=== PATIENT | female | born 1965 | race African-American/Black ===

== ENCOUNTER 2020-12-22 13:54 | Emergency (ER) | payer SELFPAY ==
[2020-12-23 00:27] LABS: SARS-CoV-2 PCR by NAA Not Detected (NotDetected)
== END 2020-12-22 15:28 | disposition home or self-care (01) ==
LOC: ERS 13:54
DX: R05 Cough (principal); Z20.822 Contact with and (suspected) exposure to COVID-19; E11.9 Type 2 diabetes mellitus without complications; I10 Essential (primary) hypertension
CPT/HCPCS: 99283; U0003; U0005

== ENCOUNTER 2021-04-08 20:05 | Emergency (ER) | payer SELFPAY ==
[2021-04-08 20:37] LABS: Bilirubin Negative (Negative); Blood, Urine Negative (Negative); Clarity Clear (Clear); Glucose, Urine (Dipstick) Greater than 1000 mg/dL (Negative); Ketone, Urine Negative (Negative); Leukocyte Negative Leu/uL (Negative); Nitrite Negative (Negative); Protein, Urine (Dipstick) Negative (Neg-Trace); Specific Gravity, Urine 1.036 (1.002-1.036); Urobilinogen Normal mg/dL (Less than 2); pH, Urine 5.5 (5.0-9.0)
[2021-04-08 20:57] LABS: Hemoglobin 14.3 g/dL (12.0-16.0); Mean Corpuscular HGB CONC 33.4 g/dL (32.0-36.0); Mean Corpuscular Hemoglobin 29.2 pg (27.0-31.0); Mean Corpuscular Volume 87.5 fL (78.0-98.0); Mean Platelet Volume 7.7 fL (7.4-10.4); Platelet Count 186 thou/uL (130-400); White Blood Cell (WBC) Count 5.3 thou/uL (4.8-10.8)
[2021-04-08 20:58] LABS: #Lymphocytes 1.9 thou/uL (1.20-3.40); #Monocytes 0.6 thou/uL (0.11-0.59); #Neutrophils 2.8 thou/uL (1.40-6.50); %Basophils 0.5 % (0.0-1.0); %Eosinophils 0.3 % (0.0-10.0); %Lymphocytes 36.1 % (21.0-51.0); %Monocytes 10.4 % (0.0-10.0); %Neutrophils 52.6 % (42.0-75.0)
[2021-04-08 21:09] LABS: ALT (SGPT) 42 U/L (8-55); AST (SGOT) 35 U/L (5-34); Albumin 3.5 g/dL (3.5-5.0); Alkaline Phosphatase 318 U/L (40-110); Anion Gap 14 mmol/L (10-20); BUN (Urea Nitrogen) 14 mg/dL (9.8-20.1); Bilirubin, Total 0.3 mg/dL (0.2-1.2); Calc. Creatinine Clearance 0 mL/min (70-130); Calcium 8.8 mg/dL (7.8-10.44); Carbon Dioxide 26 mmol/L (22-29); Chloride 93 mmol/L (98-107); Globulin 3.2 g/dL (2.4-3.5); Potassium 3.6 mmol/L (3.5-5.1); Protein, Total 6.7 g/dL (6.0-8.3); Sodium 129 mmol/L (136-145)
[2021-04-08 21:17] LABS: Glucose 603 mg/dL (70-105)
[2021-04-08] MEDS ORDERED: Acetaminophen 500 MG TAB ONE (22:47)
[2021-04-08] MEDS ORDERED: Insulin Regular 300 UNITS/3 ML VIAL ONE (22:47)
[2021-04-08] MEDS ORDERED: Azithromycin 250 MG TAB ONE ×2 (23:40)
[2021-04-09 00:08] LABS: SARS-CoV-2 NAA Rapid Test DETECTED (NotDetected)
== END 2021-04-08 23:55 | disposition home or self-care (01) ==
LOC: ERS 20:05
DX: U07.1 COVID-19 (principal); J12.82 Pneumonia due to coronavirus disease 2019; E11.65 Type 2 diabetes mellitus with hyperglycemia; I10 Essential (primary) hypertension; F17.210 Nicotine dependence, cigarettes, uncomplicated; Z79.84 Long term (current) use of oral hypoglycemic drugs; Z79.899 Other long term (current) drug therapy; Z79.82 Long term (current) use of aspirin; Z79.4 Long term (current) use of insulin
CPT/HCPCS: 36415; 36416; 71045; 74177; 80053; 81003; 83605; 83690; 85025; 96365; J1815; U0002

== ENCOUNTER 2021-04-09 12:13 | Emergency (ER) | payer MEDICARE, SELFPAY ==
[2021-04-09 13:29] LABS: Mean Corpuscular HGB CONC 32.9 g/dL (32.0-36.0); Mean Corpuscular Hemoglobin 28.8 pg (27.0-31.0); Mean Corpuscular Volume 87.5 fL (78.0-98.0); Mean Platelet Volume 7.3 fL (7.4-10.4); Platelet Count 177 thou/uL (130-400); RBC Distribution Width 14.2 % (11.5-14.5); Red Blood Cell (RBC) Count 4.86 mill/uL (4.20-5.40); White Blood Cell (WBC) Count 5.1 thou/uL (4.8-10.8)
[2021-04-09 13:55] LABS: Band 2 % (5-11); Lymphocytes 44 % (21-51); MDiff Complete? YES; Monocytes 10 % (0-10); Neutrophil 39 % (42-75); Platelet Morphology Comment Appears Adequate; RBC Morphology Normal; Reactive Lymphocytes 3 % (0-10)
== END 2021-04-09 13:59 | disposition home or self-care (01) ==
LOC: ERS 12:13
DX: U07.1 COVID-19 (principal); J12.82 Pneumonia due to coronavirus disease 2019; R10.9 Unspecified abdominal pain; I10 Essential (primary) hypertension; E11.9 Type 2 diabetes mellitus without complications; F17.210 Nicotine dependence, cigarettes, uncomplicated; Z79.82 Long term (current) use of aspirin; Z79.84 Long term (current) use of oral hypoglycemic drugs; Z79.899 Other long term (current) drug therapy
CPT/HCPCS: 36415; 85025; 99283

== ENCOUNTER 2021-04-20 12:48 | Emergency (ER) | payer MEDICARE, SELFPAY ==
[2021-04-21 00:06] LABS: SARS-CoV-2 PCR by NAA Indeterminate (NotDetected)
== END 2021-04-20 13:16 | disposition home or self-care (01) ==
LOC: ERS 12:48
DX: U07.1 COVID-19 (principal); E11.9 Type 2 diabetes mellitus without complications; I10 Essential (primary) hypertension; F17.210 Nicotine dependence, cigarettes, uncomplicated; Z79.82 Long term (current) use of aspirin; Z79.84 Long term (current) use of oral hypoglycemic drugs; Z79.4 Long term (current) use of insulin; Z79.899 Other long term (current) drug therapy
CPT/HCPCS: 99284; U0003; U0005

== ENCOUNTER 2021-05-08 12:01 | Emergency (ER) | payer MEDICARE ==
[2021-05-08] MEDS ORDERED: Ibuprofen 800 MG TAB ONE (14:16)
== END 2021-05-08 15:45 | disposition home or self-care (01) ==
LOC: ERS 12:01
DX: S80.12XA Contusion of left lower leg, initial encounter (principal); I10 Essential (primary) hypertension; E11.9 Type 2 diabetes mellitus without complications; E78.00 Pure hypercholesterolemia, unspecified; I25.2 Old myocardial infarction; F17.210 Nicotine dependence, cigarettes, uncomplicated; X58.XXXA Exposure to other specified factors, initial encounter; Z95.1 Presence of aortocoronary bypass graft

== ENCOUNTER 2021-05-23 16:39 | Emergency (ER) | payer MEDICARE | END 2021-05-23 17:50 | disposition home or self-care (01) | LOC: ERS 16:39 | DX: M79.672 Pain in left foot (principal); I10 Essential (primary) hypertension; E11.40 Type 2 diabetes mellitus with diabetic neuropathy, unspecified; F17.210 Nicotine dependence, cigarettes, uncomplicated ==

== ENCOUNTER 2021-10-23 13:27 | Inpatient (IN) | payer MEDICARE ==
[2021-10-23 14:21] LABS: #Basophils 0.1 thou/uL (0.0-0.2); #Eosinphils 0.3 thou/uL (0.0-0.7); #Lymphocytes 4.3 thou/uL (1.20-3.40); #Monocytes 0.7 thou/uL (0.11-0.59); #Neutrophils 3.8 thou/uL (1.40-6.50); %Basophils 1.1 % (0.0-1.0); %Eosinophils 3.2 % (0.0-10.0); %Lymphocytes 46.8 % (21.0-51.0); %Monocytes 7.1 % (0.0-10.0); %Neutrophils 41.8 % (42.0-75.0); Hemoglobin 12.2 g/dL (12.0-16.0); Mean Corpuscular HGB CONC 31.6 g/dL (32.0-36.0); Mean Platelet Volume 7.7 fL (7.4-10.4); Platelet Count 290 thou/uL (130-400); RBC Distribution Width 13.9 % (11.5-14.5); Red Blood Cell (RBC) Count 4.18 mill/uL (4.20-5.40); White Blood Cell (WBC) Count 9.2 thou/uL (4.8-10.8)
[2021-10-23 14:31] LABS: ALT (SGPT) 36 U/L (8-55); AST (SGOT) 29 U/L (5-34); Albumin 3.4 g/dL (3.5-5.0); Alkaline Phosphatase 225 U/L (40-110); Anion Gap 14 mmol/L (10-20); BUN (Urea Nitrogen) 8 mg/dL (9.8-20.1); Bilirubin, Total 0.5 mg/dL (0.2-1.2); Calc. Creatinine Clearance 0 mL/min (70-130); Calcium 9.1 mg/dL (7.8-10.44); Carbon Dioxide 26 mmol/L (22-29); Chloride 103 mmol/L (98-107); Estimated GFR 86; Glucose 224 mg/dL (70-105); Protein, Total 6.4 g/dL (6.0-8.3); Sodium 139 mmol/L (136-145)
[2021-10-23] MEDS ORDERED: Furosemide 40 MG/4 ML VIAL ONE (15:17)
[2021-10-23] MEDS ORDERED: Nitroglycerin 2% Ointment 1 INCH/1 GM Packet ONE (15:17)
[2021-10-23] MEDS ORDERED: Nitroglycerin 0.4 MG TAB 1 EACH ONE (15:17)
[2021-10-23] MEDS ORDERED: Aspirin Chewable 81 MG TAB ONE (15:29)
[2021-10-23] MEDS ORDERED: Magnesium 2 GM/50 ML BAG (IN WATER) ONE (15:39)
[2021-10-23] MEDS ORDERED: Azithromycin 250 MG TAB ONE (15:39)
[2021-10-23] MEDS ORDERED: predniSONE 20 MG TAB ONE (15:39)
[2021-10-23] MEDS ORDERED: cefTRIAXone\\ROCEPHIN 1 GM VIAL ONE (15:56)
[2021-10-23] MEDS ORDERED: Enoxaparin Sodium 40 MG/0.4 ML SYRINGE SC SCH (16:30)
[2021-10-23] MEDS ORDERED: Dextrose 50% Abboject 50 ML SYRINGE SLOW IVP PRN (16:31)
[2021-10-23] MEDS ORDERED: Dextrose 5% in Water 1,000 ML IV PRN (16:31)
[2021-10-23 17:07] LABS: Actual Bicarbonate (HCO3v) 27 mEq/L (22-28); Analyzer IN Cardio ER; Base Excess 1.4 mEq/L (-2.0 to +3.0); Calcium, Ionized (venous) 1.11 mmol/L (1.16-1.32); Chloride (VBG) 100 mmol/L (98-106); Hemoglobin (Hb) 13.4 g/dL (11.7-16.0); Potassium (VBG) 3.66 mmol/L (3.70-5.30); Sodium 134.8 mmol/L (133-146)
[2021-10-23 17:26] LABS: Troponin I 0.017 ng/mL (< 0.028)
[2021-10-23] MEDS: Nicotine 14 MG PATCH TD SCH (18:36)
[2021-10-23 18:37] VITALS: BMI 27.1
[2021-10-23] MEDS ORDERED: Furosemide 40 MG/4 ML VIAL SLOW IVP SCH (20:15)
[2021-10-23] MEDS: metFORMIN 500 MG TAB PO SCH (21:24)
[2021-10-23] MEDS: Carvedilol 25 MG TAB PO SCH (21:24)
[2021-10-23] MEDS: busPIRone HCl 10 MG TAB PO SCH (21:25)
[2021-10-23] MEDS: Gabapentin 400 MG CAP PO SCH (21:25)
[2021-10-24] MEDS ORDERED: hydrALAZINE 20 MG/ML VIAL SLOW IVP SCH (04:45)
[2021-10-24 04:54] LABS: #Lymphocytes 2.3 thou/uL (1.20-3.40); #Monocytes 0.3 thou/uL (0.11-0.59); #Neutrophils 6.1 thou/uL (1.40-6.50); %Basophils 0.3 % (0.0-1.0); %Eosinophils 0.3 % (0.0-10.0); %Lymphocytes 25.9 % (21.0-51.0); %Monocytes 3.8 % (0.0-10.0); %Neutrophils 69.7 % (42.0-75.0); Hemoglobin 12.9 g/dL (12.0-16.0); Mean Corpuscular Hemoglobin 28.4 pg (27.0-31.0); Mean Corpuscular Volume 91.3 fL (78.0-98.0); Mean Platelet Volume 8.2 fL (7.4-10.4); Platelet Count 299 thou/uL (130-400); RBC Distribution Width 14.1 % (11.5-14.5); Red Blood Cell (RBC) Count 4.56 mill/uL (4.20-5.40); White Blood Cell (WBC) Count 8.7 thou/uL (4.8-10.8)
[2021-10-24 05:07] LABS: Anion Gap 18 mmol/L (10-20); BUN (Urea Nitrogen) 14 mg/dL (9.8-20.1); Calc. Creatinine Clearance 72 mL/min (70-130); Calcium 9.1 mg/dL (7.8-10.44); Carbon Dioxide 26 mmol/L (22-29); Chloride 98 mmol/L (98-107); Estimated GFR 61; Glucose 363 mg/dL (70-105); Potassium 4.1 mmol/L (3.5-5.1); Sodium 138 mmol/L (136-145)
[2021-10-24] MEDS: HumaLOG 300 UNITS/3 ML VIAL SC PRN ×4 (05:32→22:31)
[2021-10-24] MEDS ORDERED: Furosemide 40 MG/4 ML VIAL SLOW IVP SCH ×3 (08:00→18:00)
[2021-10-24] MEDS ORDERED: POTASSIUM CHLORIDE 40 MEQ/15 ML PO SCH (09:00)
[2021-10-24] MEDS ORDERED: Furosemide 40 MG TAB PO SCH (09:00)
[2021-10-24] MEDS ORDERED: Insulin Glargine 30 UNITS/0.3 ML VIAL SC SCH ×3 (09:00→10:00)
[2021-10-24] MEDS ORDERED: Lantus 1000 UNITS/10 ML VIAL SC SCH (09:45)
[2021-10-24 10:03] LABS: Hemoglobin A1c Greater than 14.0 % (4.0-6.0)
[2021-10-24] MEDS: metFORMIN 500 MG TAB PO SCH ×2 (10:28→20:00)
[2021-10-24] MEDS: Amitriptyline HCl 25 MG TAB PO SCH (10:28)
[2021-10-24] MEDS: Carvedilol 25 MG TAB PO SCH ×2 (10:29→19:59)
[2021-10-24] MEDS: Spironolactone 25 MG TAB PO SCH (10:29)
[2021-10-24] MEDS: Aspirin 81 mg Enteric Coated Tablet PO SCH (10:30)
[2021-10-24] MEDS: Gabapentin 400 MG CAP PO SCH ×3 (10:36→19:59)
[2021-10-24] MEDS: busPIRone HCl 10 MG TAB PO SCH ×3 (10:36→20:00)
[2021-10-24] MEDS: Nicotine 14 MG PATCH TD SCH (18:01)
[2021-10-25] MEDS: HumaLOG 300 UNITS/3 ML VIAL SC PRN ×3 (00:58→13:02)
[2021-10-25 08:39] LABS: Anion Gap 14 mmol/L (10-20); BUN (Urea Nitrogen) 14 mg/dL (9.8-20.1); Calc. Creatinine Clearance 75 mL/min (70-130); Calcium 8.6 mg/dL (7.8-10.44); Carbon Dioxide 30 mmol/L (22-29); Chloride 98 mmol/L (98-107); Estimated GFR 68; Glucose 393 mg/dL (70-105); Potassium 3.3 mmol/L (3.5-5.1); Sodium 139 mmol/L (136-145)
[2021-10-25] MEDS ORDERED: Insulin Glargine 30 UNITS/0.3 ML VIAL SC SCH ×4 (09:00→09:08)
[2021-10-25] MEDS: metFORMIN 500 MG TAB PO SCH ×3 (09:08→20:22)
[2021-10-25] MEDS: Amitriptyline HCl 25 MG TAB PO SCH (09:09)
[2021-10-25] MEDS: busPIRone HCl 10 MG TAB PO SCH ×3 (09:09→20:13)
[2021-10-25] MEDS: Gabapentin 400 MG CAP PO SCH ×3 (09:09→20:13)
[2021-10-25] MEDS: Spironolactone 25 MG TAB PO SCH (09:10)
[2021-10-25] MEDS: Aspirin 81 mg Enteric Coated Tablet PO SCH (09:10)
[2021-10-25] MEDS ORDERED: Furosemide 40 MG/4 ML VIAL SLOW IVP SCH (09:15)
[2021-10-25] MEDS ORDERED: Potassium Chloride 20 MEQ TAB PO SCH ×2 (09:15→13:15)
[2021-10-25] MEDS: Carvedilol 25 MG TAB PO SCH ×2 (09:20→20:12)
[2021-10-25] MEDS: HumaLOG 300 UNITS/3 ML VIAL SC SCH ×2 (13:01→17:17)
[2021-10-25] MEDS: Furosemide 40 MG/4 ML VIAL SLOW IVP SCH ×2 (14:50→20:15)
[2021-10-25] MEDS: Nicotine 14 MG PATCH TD SCH (17:35)
[2021-10-26] MEDS: HumaLOG 300 UNITS/3 ML VIAL SC PRN ×2 (00:10→11:59)
[2021-10-26 04:32] LABS: Anion Gap 15 mmol/L (10-20); BUN (Urea Nitrogen) 16 mg/dL (9.8-20.1); Calc. Creatinine Clearance 82 mL/min (70-130); Calcium 9.1 mg/dL (7.8-10.44); Carbon Dioxide 29 mmol/L (22-29); Chloride 99 mmol/L (98-107); Estimated GFR 77; Glucose 161 mg/dL (70-105); Potassium 3.5 mmol/L (3.5-5.1); Sodium 139 mmol/L (136-145)
[2021-10-26] MEDS ORDERED: Losartan 25 MG TAB PO SCH (09:00)
[2021-10-26] MEDS ORDERED: Insulin Glargine 30 UNITS/0.3 ML VIAL SC SCH (09:00)
[2021-10-26] MEDS ORDERED: Potassium Chloride 20 MEQ TAB PO SCH (09:00)
[2021-10-26] MEDS ORDERED: Lantus 1000 UNITS/10 ML VIAL SC SCH (09:00)
[2021-10-26] MEDS: busPIRone HCl 10 MG TAB PO SCH ×2 (09:13→16:31)
[2021-10-26] MEDS: Amitriptyline HCl 25 MG TAB PO SCH (09:13)
[2021-10-26] MEDS: metFORMIN 500 MG TAB PO SCH (09:13)
[2021-10-26] MEDS: Aspirin 81 mg Enteric Coated Tablet PO SCH (09:14)
[2021-10-26] MEDS: Gabapentin 400 MG CAP PO SCH ×2 (09:14→16:31)
[2021-10-26] MEDS: Carvedilol 25 MG TAB PO SCH (09:16)
[2021-10-26] MEDS: Spironolactone 25 MG TAB PO SCH (09:17)
[2021-10-26] MEDS ORDERED: Torsemide 20 MG TAB PO SCH (11:00)
[2021-10-26 17:24] VITALS: BP 143/83; TEMP 98
[2021-10-27] MEDS ORDERED: Potassium Chloride 20 MEQ TAB PO SCH (08:00)
[2021-10-27] MEDS ORDERED: Torsemide 20 MG TAB PO SCH ×2 (09:00)
== END 2021-10-26 17:28 | disposition home or self-care (01) | DRG 291 ==
LOC: ERS 13:27 → 2NO 15:46
PROVIDERS: ADMIT Student in an Organized Health Care Education/Training Program; ATTEND Student in an Organized Health Care Education/Training Program
DX: I11.0 Hypertensive heart disease with heart failure (principal); I50.23 Acute on chronic systolic (congestive) heart failure; Z20.822 Contact with and (suspected) exposure to COVID-19; E78.5 Hyperlipidemia, unspecified; I25.10 Atherosclerotic heart disease of native coronary artery without angina pectoris; E11.9 Type 2 diabetes mellitus without complications; F32.A Depression, unspecified; E87.6 Hypokalemia; F41.9 Anxiety disorder, unspecified; J44.9 Chronic obstructive pulmonary disease, unspecified; F17.210 Nicotine dependence, cigarettes, uncomplicated; Z79.4 Long term (current) use of insulin; Z79.82 Long term (current) use of aspirin; Z79.899 Other long term (current) drug therapy; Z79.84 Long term (current) use of oral hypoglycemic drugs; Z95.1 Presence of aortocoronary bypass graft; Z90.710 Acquired absence of both cervix and uterus
CPT/HCPCS: 36415; 36416; 71045; 80048; 80053; 82805; 83036; 83880; 84145; 84484; 85025; 93005; 93306; 94640; J0360; J0696; J1650; J1815; J1940; J3475; J7512; J7620; U0003; U0005

== ENCOUNTER 2022-04-17 08:56 | Emergency (ER) | payer MEDICARE ==
[2022-04-17] MEDS ORDERED: Acetaminophen 500 MG TAB ONE (09:32)
[2022-04-17] MEDS ORDERED: Ibuprofen 200 MG TAB ONE (09:32)
== END 2022-04-17 11:46 | disposition home or self-care (01) ==
LOC: ERS 08:56
DX: J06.9 Acute upper respiratory infection, unspecified (principal); I10 Essential (primary) hypertension; E11.40 Type 2 diabetes mellitus with diabetic neuropathy, unspecified; F17.210 Nicotine dependence, cigarettes, uncomplicated; Z20.822 Contact with and (suspected) exposure to COVID-19
CPT/HCPCS: 71046; 87804 ×2; 93005; 99284; U0003; U0005

== ENCOUNTER 2022-05-15 07:38 | Inpatient (IN) | payer MEDICARE ==
[2022-05-15] MEDS ORDERED: Furosemide 40 MG/4 ML VIAL ONE ×2 (08:05→14:29)
[2022-05-15] MEDS ORDERED: Nitroglycerin 2% Ointment 1 INCH/1 GM Packet ONE (08:05)
[2022-05-15 08:11] LABS: Actual Bicarbonate (HCO3v) 27 mEq/L (22-28); Analyzer IN Cardio ER; Base Excess 1.5 mEq/L (-2.0 to +3.0); Calcium, Ionized (venous) 1.11 mmol/L (1.16-1.32); Chloride (VBG) 104 mmol/L (98-106); Hemoglobin (Hb) 13.6 g/dL (11.7-16.0); Potassium (VBG) 3.78 mmol/L (3.70-5.30); pH (venous) 7.39 (7.32-7.43)
[2022-05-15 08:29] LABS: #Basophils 0.2 thou/uL (0.0-0.2); #Eosinphils 0.6 thou/uL (0.0-0.7); #Lymphocytes 5.7 thou/uL (1.20-3.40); #Monocytes 0.9 thou/uL (0.11-0.59); #Neutrophils 6.2 thou/uL (1.40-6.50); %Basophils 1.1 % (0.0-1.0); %Eosinophils 4.2 % (0.0-10.0); %Lymphocytes 42.5 % (21.0-51.0); %Monocytes 6.5 % (0.0-10.0); %Neutrophils 45.8 % (42.0-75.0); Hemoglobin 12.7 g/dL (12.0-16.0); Mean Corpuscular HGB CONC 33.1 g/dL (32.0-36.0); Mean Corpuscular Hemoglobin 30.3 pg (27.0-31.0); Mean Corpuscular Volume 91.4 fl (78.0-98.0); Mean Platelet Volume 8.3 fL (7.4-10.4); Platelet Count 278 10x3/uL (130-400); RBC Distribution Width 13.7 % (11.5-14.5); Red Blood Cell (RBC) Count 4.21 mill/uL (4.20-5.40); White Blood Cell (WBC) Count 13.5 10x3/uL (4.8-10.8)
[2022-05-15 08:48] LABS: ALT (SGPT) 65 U/L (8-55); AST (SGOT) 80 U/L (5-34); Albumin 3.5 g/dL (3.5-5.0); Alkaline Phosphatase 266 U/L (40-110); Anion Gap 14 mmol/L (10-20); BUN (Urea Nitrogen) 14 mg/dL (9.8-20.1); Bilirubin, Total 0.7 mg/dL (0.2-1.2); Calc. Creatinine Clearance 0 mL/min (70-130); Calcium 9.1 mg/dL (7.8-10.44); Carbon Dioxide 25 mmol/L (22-29); Chloride 104 mmol/L (98-107); Estimated GFR 79; Globulin 3.3 g/dL (2.4-3.5); Glucose 243 mg/dL (70-105); Protein, Total 6.8 g/dL (6.0-8.3); Sodium 139 mmol/L (136-145)
[2022-05-15] MEDS ORDERED: Dextrose 5% in Water 1,000 ML IV PRN (11:14)
[2022-05-15] MEDS ORDERED: Dextrose 50% Abboject 50 ML SYRINGE SLOW IVP PRN (11:14)
[2022-05-15] MEDS ORDERED: Acetaminophen 325 MG TAB PO PRN (11:14)
[2022-05-15] MEDS ORDERED: tiZANidine HCl 4 MG TAB PO PRN (11:55)
[2022-05-15 12:35] LABS: Magnesium 1.1 mg/dL (1.6-2.6); Phosphorus 3.6 mg/dL (2.3-4.7)
[2022-05-15] MEDS ORDERED: Magnesium 2 GM/50 ML(in water) 2 GM in Premix Bag 1 BAG IVPB SCH (12:45)
[2022-05-15] MEDS ORDERED: Magnesium 2 GM/50 ML BAG (IN WATER) ONE (13:21)
[2022-05-15] MEDS ORDERED: Furosemide 40 MG/4 ML VIAL SLOW IVP SCH (14:00)
[2022-05-15 14:37] LABS: HBCM Index 0.05 S/CO (0-0.79); Hep A IgM AB Non-Reactive (NonReactive); Hep A IgM S/CO 0.21 S/CO (0-0.79); Hep B Surf Ag Non-Reactive S/CO (NonReactive); Hep C IgG Ab Non-Reactive (NonReactive); Hep C Index 0.07 S/CO (0-0.79); Hepatitis B Core IgM Abs Non-Reactive (NonReactive)
[2022-05-15] MEDS: busPIRone HCl 10 MG TAB PO SCH ×2 (14:45→22:04)
[2022-05-15] MEDS: Gabapentin 400 MG CAP PO SCH ×2 (14:45→22:05)
[2022-05-15] MEDS: Isosorbide Dinitrate 20 MG TAB PO SCH ×2 (14:46→22:05)
[2022-05-15] MEDS ORDERED: Non-Formulary Item 1 EACH (Gabapentin [Gabapentin] 800 MG Tablet) PO SCH (15:00)
[2022-05-15 17:12] VITALS: BMI 24.8
[2022-05-15] MEDS ORDERED: Non-Formulary Item 1 EACH (Metformin Hcl [Metformin Hcl] 1,000 MG Tablet) PO SCH (21:00)
[2022-05-15] MEDS ORDERED: Insulin Glargine 30 UNITS/0.3 ML VIAL SC SCH (21:00)
[2022-05-15] MEDS ORDERED: Non-Formulary Item 1 EACH (Mirtazapine [Mirtazapine] 7.5 MG Tablet) PO SCH (21:00)
[2022-05-15] MEDS ORDERED: Non-Formulary Item 1 EACH (Melatonin [Melatonin] 5 MG Tablet) PO SCH (21:00)
[2022-05-15] MEDS: Melatonin 3 MG TAB PO SCH (22:04)
[2022-05-15] MEDS: Atorvastatin Calcium 40 MG TAB PO SCH (22:04)
[2022-05-15] MEDS: Carvedilol 25 MG TAB PO SCH (22:05)
[2022-05-15] MEDS: metFORMIN 500 MG TAB PO SCH (22:06)
[2022-05-15] MEDS: Mirtazapine 15 MG TAB PO SCH (22:06)
[2022-05-15] MEDS: HumaLOG 300 UNITS/3 ML VIAL SC PRN (22:07)
[2022-05-16] MEDS: HumaLOG 300 UNITS/3 ML VIAL SC PRN ×4 (05:57→21:26)
[2022-05-16 06:03] LABS: #Basophils 0.1 thou/uL (0.0-0.2); #Eosinphils 0.5 thou/uL (0.0-0.7); #Monocytes 0.9 thou/uL (0.11-0.59); #Neutrophils 4.4 thou/uL (1.40-6.50); %Basophils 1.2 % (0.0-1.0); %Eosinophils 4.4 % (0.0-10.0); %Lymphocytes 45.9 % (21.0-51.0); %Monocytes 8.5 % (0.0-10.0); Mean Corpuscular HGB CONC 32.8 g/dL (32.0-36.0); Mean Corpuscular Hemoglobin 29.6 pg (27.0-31.0); Mean Corpuscular Volume 90.4 fl (78.0-98.0); Mean Platelet Volume 8.7 fL (7.4-10.4); Platelet Count 245 10x3/uL (130-400); RBC Distribution Width 13.8 % (11.5-14.5); Red Blood Cell (RBC) Count 4.04 mill/uL (4.20-5.40); White Blood Cell (WBC) Count 10.9 10x3/uL (4.8-10.8)
[2022-05-16 06:20] LABS: ALT (SGPT) 56 U/L (8-55); AST (SGOT) 56 U/L (5-34); Albumin 3.1 g/dL (3.5-5.0); Alkaline Phosphatase 260 U/L (40-110); Anion Gap 14 mmol/L (10-20); BUN (Urea Nitrogen) 16 mg/dL (9.8-20.1); Bilirubin, Total 0.7 mg/dL (0.2-1.2); Calc. Creatinine Clearance 76 mL/min (70-130); Calcium 9.2 mg/dL (7.8-10.44); Carbon Dioxide 27 mmol/L (22-29); Chloride 102 mmol/L (98-107); Estimated GFR 75; Globulin 3.5 g/dL (2.4-3.5); Glucose 275 mg/dL (70-105); Magnesium 1.6 mg/dL (1.6-2.6); Potassium 3.9 mmol/L (3.5-5.1); Protein, Total 6.6 g/dL (6.0-8.3); Sodium 139 mmol/L (136-145)
[2022-05-16] MEDS ORDERED: Magnesium 2 GM/50 ML(in water) 2 GM in Premix Bag 1 BAG IVPB SCH (08:00)
[2022-05-16] MEDS ORDERED: Insulin Glargine 30 UNITS/0.3 ML VIAL SC SCH ×2 (08:45→21:00)
[2022-05-16] MEDS: Cholecalciferol 1,000 UNITS (25 MCG) TAB PO SCH (08:55)
[2022-05-16] MEDS: busPIRone HCl 10 MG TAB PO SCH ×3 (08:55→21:21)
[2022-05-16] MEDS: Carvedilol 25 MG TAB PO SCH ×2 (08:55→21:23)
[2022-05-16] MEDS: Aspirin Chewable 81 MG TAB PO SCH (08:55)
[2022-05-16] MEDS: Losartan 25 MG TAB PO SCH (08:56)
[2022-05-16] MEDS: Gabapentin 400 MG CAP PO SCH ×3 (08:56→21:23)
[2022-05-16] MEDS: Loratadine 10 MG TAB PO SCH (08:56)
[2022-05-16] MEDS: Isosorbide Dinitrate 20 MG TAB PO SCH ×3 (08:56→21:24)
[2022-05-16] MEDS: metFORMIN 500 MG TAB PO SCH ×2 (08:56→21:25)
[2022-05-16] MEDS: pyridOXINE 50 MG (B6) TAB PO SCH (08:57)
[2022-05-16] MEDS: Multivit, Therapeutic 1 TAB PO SCH (08:57)
[2022-05-16] MEDS: Spironolactone 25 MG TAB PO SCH (08:57)
[2022-05-16] MEDS ORDERED: Non-Formulary Item 1 EACH (Multivitamin [Multivitamin] 1 EACH Tablet) PO SCH (09:00)
[2022-05-16] MEDS ORDERED: Non-Formulary Item 1 EACH (Aspirin [Vazalore] 81 MG Capsule) PO SCH (09:00)
[2022-05-16] MEDS ORDERED: Non-Formulary Item 1 EACH (Cetirizine Hcl [All Day Allergy Relief] 10 MG Capsule) PO SCH (09:00)
[2022-05-16] MEDS ORDERED: Torsemide 20 MG TAB PO SCH (09:00)
[2022-05-16] MEDS ORDERED: Empagliflozin 10 MG TAB PO SCH (12:15)
[2022-05-16] MEDS: Atorvastatin Calcium 40 MG TAB PO SCH (21:21)
[2022-05-16] MEDS: Melatonin 3 MG TAB PO SCH (21:25)
[2022-05-16] MEDS: Mirtazapine 15 MG TAB PO SCH (21:25)
[2022-05-17 05:12] LABS: #Basophils 0.1 thou/uL (0.0-0.2); #Eosinphils 0.6 thou/uL (0.0-0.7); #Lymphocytes 4.9 thou/uL (1.20-3.40); #Neutrophils 3.4 thou/uL (1.40-6.50); %Basophils 1.2 % (0.0-1.0); %Lymphocytes 48.9 % (21.0-51.0); %Monocytes 10.3 % (0.0-10.0); %Neutrophils 33.7 % (42.0-75.0); Hemoglobin 11.3 g/dL (12.0-16.0); Mean Corpuscular HGB CONC 32.4 g/dL (32.0-36.0); Mean Corpuscular Hemoglobin 29.8 pg (27.0-31.0); Mean Corpuscular Volume 92.1 fl (78.0-98.0); Platelet Count 246 10x3/uL (130-400); RBC Distribution Width 13.7 % (11.5-14.5); Red Blood Cell (RBC) Count 3.78 mill/uL (4.20-5.40)
[2022-05-17 05:36] LABS: ALT (SGPT) 66 U/L (8-55); AST (SGOT) 61 U/L (5-34); Albumin 3.2 g/dL (3.5-5.0); Alkaline Phosphatase 269 U/L (40-110); Anion Gap 13 mmol/L (10-20); BUN (Urea Nitrogen) 16 mg/dL (9.8-20.1); Bilirubin, Total 0.4 mg/dL (0.2-1.2); Calc. Creatinine Clearance 70 mL/min (70-130); Calcium 8.7 mg/dL (7.8-10.44); Carbon Dioxide 25 mmol/L (22-29); Chloride 106 mmol/L (98-107); Estimated GFR 63; Globulin 3.3 g/dL (2.4-3.5); Glucose 187 mg/dL (70-105); Potassium 3.7 mmol/L (3.5-5.1); Protein, Total 6.5 g/dL (6.0-8.3); Sodium 140 mmol/L (136-145)
[2022-05-17 06:09] LABS: Magnesium 1.6 mg/dL (1.6-2.6)
[2022-05-17] MEDS ORDERED: Magnesium 2 GM/50 ML(in water) 2 GM in Premix Bag 1 BAG IVPB SCH ×2 (06:45→09:00)
[2022-05-17 07:59] VITALS: BP 161/68; TEMP 98.9
[2022-05-17] MEDS ORDERED: Magnesium Oxide 400 MG TAB PO SCH (09:00)
[2022-05-17] MEDS ORDERED: Empagliflozin 10 MG TAB PO SCH (09:00)
[2022-05-17] MEDS ORDERED: Insulin Glargine 30 UNITS/0.3 ML VIAL SC SCH (09:00)
[2022-05-17] MEDS ORDERED: Torsemide 20 MG TAB PO SCH (09:00)
[2022-05-17] MEDS: Aspirin Chewable 81 MG TAB PO SCH (09:35)
[2022-05-17] MEDS: Carvedilol 25 MG TAB PO SCH (09:35)
[2022-05-17] MEDS: busPIRone HCl 10 MG TAB PO SCH ×2 (09:35→15:26)
[2022-05-17] MEDS: Cholecalciferol 1,000 UNITS (25 MCG) TAB PO SCH (09:35)
[2022-05-17] MEDS: Gabapentin 400 MG CAP PO SCH ×2 (09:38→15:25)
[2022-05-17] MEDS: Isosorbide Dinitrate 20 MG TAB PO SCH ×2 (09:39→15:26)
[2022-05-17] MEDS: Loratadine 10 MG TAB PO SCH (09:40)
[2022-05-17] MEDS: Losartan 25 MG TAB PO SCH (09:40)
[2022-05-17] MEDS: metFORMIN 500 MG TAB PO SCH (09:41)
[2022-05-17] MEDS: Multivit, Therapeutic 1 TAB PO SCH (09:41)
[2022-05-17] MEDS: Spironolactone 25 MG TAB PO SCH (09:41)
[2022-05-17] MEDS: pyridOXINE 50 MG (B6) TAB PO SCH (09:42)
== END 2022-05-17 15:36 | disposition home or self-care (01) | DRG 291 ==
LOC: ERS 07:38 → ERHOLD 10:29 → 2SW 16:13 → OBSVTOIN 05-17 10:49
PROVIDERS: ADMIT Student in an Organized Health Care Education/Training Program; ATTEND Student in an Organized Health Care Education/Training Program
PROC: 5A09357 Assistance with Respiratory Ventilation, Less than 24 Consecutive Hours, Continuous Positive Airway Pressure (ICD-10-PCS; principal; 2022-05-17)
DX: I11.0 Hypertensive heart disease with heart failure (principal); I50.23 Acute on chronic systolic (congestive) heart failure; J96.01 Acute respiratory failure with hypoxia; Z20.822 Contact with and (suspected) exposure to COVID-19; E78.5 Hyperlipidemia, unspecified; F41.9 Anxiety disorder, unspecified; F32.A Depression, unspecified; E87.6 Hypokalemia; E83.42 Hypomagnesemia; K76.1 Chronic passive congestion of liver; I25.10 Atherosclerotic heart disease of native coronary artery without angina pectoris; E11.40 Type 2 diabetes mellitus with diabetic neuropathy, unspecified; Z79.82 Long term (current) use of aspirin; Z79.899 Other long term (current) drug therapy; Z79.84 Long term (current) use of oral hypoglycemic drugs; Z79.4 Long term (current) use of insulin; Z95.1 Presence of aortocoronary bypass graft; Z90.710 Acquired absence of both cervix and uterus; Z87.891 Personal history of nicotine dependence
CPT/HCPCS: 36415; 36416; 71045; 80053; 80074; 82805; 83735; 83880; 84100; 84145; 84484; 85025; 93005; 94660; 94760; J1650; J1815; J1940; J3475; U0003; U0005

== ENCOUNTER 2022-12-06 13:22 | Emergency (ER) | payer MEDICARE, SELFPAY ==
[2022-12-06] MEDS ORDERED: Iopamidol-370 76% 500 ML MDV (1 ML CHARGE) ONE (14:54)
[2022-12-06 15:36] LABS: SARS-CoV-2 NAA Rapid Test DETECTED (NotDetected)
[2022-12-06] MEDS ORDERED: Promethazine HCl 25 MG/ML VIAL ONE (15:48)
[2022-12-06 15:49] LABS: #Basophils 0.1 thou/uL (0.0-0.2); #Eosinphils 0.2 thou/uL (0.0-0.7); #Monocytes 0.7 thou/uL (0.11-0.59); #Neutrophils 2.9 thou/uL (1.40-6.50); %Basophils 1.8 % (0.0-1.0); %Eosinophils 2.3 % (0.0-10.0); %Lymphocytes 46.6 % (21.0-51.0); %Monocytes 9.6 % (0.0-10.0); %Neutrophils 39.4 % (42.0-75.0); Hematocrit 40.8 % (36.0-47.0); Hemoglobin 13.6 g/dL (12.0-16.0); Mean Corpuscular HGB CONC 33.3 g/dL (32.0-36.0); Mean Corpuscular Hemoglobin 28.5 pg (27.0-31.0); Mean Corpuscular Volume 85.5 fl (78.0-98.0); Mean Platelet Volume 9.8 fL (7.4-10.4); Platelet Count 240 10x3/uL (130-400); RBC Distribution Width 15.3 % (11.5-14.5); Red Blood Cell (RBC) Count 4.77 mill/uL (4.20-5.40); White Blood Cell (WBC) Count 7.4 10x3/uL (4.8-10.8)
[2022-12-06 16:11] LABS: ALT (SGPT) 24 U/L (8-55); AST (SGOT) 22 U/L (5-34); Albumin 3.8 g/dL (3.5-5.0); Alkaline Phosphatase 168 U/L (40-110); Anion Gap 15 mmol/L (10-20); BUN (Urea Nitrogen) 14 mg/dL (9.8-20.1); Bilirubin, Total 0.2 mg/dL (0.2-1.2); Calc. Creatinine Clearance 0 mL/min (70-130); Calcium 9.2 mg/dL (7.8-10.44); Carbon Dioxide 27 mmol/L (22-29); Chloride 96 mmol/L (98-107); Estimated GFR 43; Globulin 3.7 g/dL (2.4-3.5); Glucose 382 mg/dL (70-105); Lipase 35 U/L (8-78); Potassium 3.4 mmol/L (3.5-5.1); Protein, Total 7.5 g/dL (6.0-8.3); Sodium 135 mmol/L (136-145)
[2022-12-06 16:17] LABS: Troponin I 0.025 ng/mL (< 0.028)
== END 2022-12-06 17:40 | disposition home or self-care (01) ==
LOC: ERS 13:22
DX: U07.1 COVID-19 (principal); A08.4 Viral intestinal infection, unspecified; I25.10 Atherosclerotic heart disease of native coronary artery without angina pectoris; E78.00 Pure hypercholesterolemia, unspecified; E11.40 Type 2 diabetes mellitus with diabetic neuropathy, unspecified; I11.0 Hypertensive heart disease with heart failure; I50.9 Heart failure, unspecified; F17.210 Nicotine dependence, cigarettes, uncomplicated; Z79.82 Long term (current) use of aspirin; Z79.899 Other long term (current) drug therapy; Z79.84 Long term (current) use of oral hypoglycemic drugs; Z20.822 Contact with and (suspected) exposure to COVID-19
CPT/HCPCS: 36415; 74177; 80053; 83605; 83690; 84484; 85025; 93005; 96361; 96365; J2550; Q9967

== ENCOUNTER 2023-05-06 23:54 | Emergency (ER) | payer SELFPAY ==
[2023-05-07 00:45] LABS: #Basophils 0.1 thou/uL (0.0-0.2); #Eosinphils 0.3 thou/uL (0.0-0.7); #Monocytes 0.7 thou/uL (0.11-0.59); #Neutrophils 4.4 thou/uL (1.40-6.50); %Basophils 1.2 % (0.0-1.0); %Eosinophils 3.1 % (0.0-10.0); %Neutrophils 47.2 % (42.0-75.0); Hematocrit 38.3 % (36.0-47.0); Hemoglobin 13.1 g/dL (12.0-16.0); Mean Corpuscular HGB CONC 34.2 g/dL (32.0-36.0); Mean Corpuscular Hemoglobin 28.6 pg (27.0-31.0); Mean Corpuscular Volume 83.6 fl (78.0-98.0); Mean Platelet Volume 10.2 fL (7.4-10.4); Platelet Count 294 10x3/uL (130-400); RBC Distribution Width 16.6 % (11.5-14.5); Red Blood Cell (RBC) Count 4.58 mill/uL (4.20-5.40); White Blood Cell (WBC) Count 9.3 10x3/uL (4.8-10.8)
[2023-05-07] MEDS ORDERED: Famotidine/PF 20 mg/2ml Vial ONE (00:52)
[2023-05-07] MEDS ORDERED: diphenhydrAMINE 50 MG/ML VIAL ONE (00:52)
[2023-05-07] MEDS ORDERED: predniSONE 20 MG TAB ONE (00:52)
[2023-05-07 01:08] LABS: ALT (SGPT) 148 U/L (8-55); AST (SGOT) 100 U/L (5-34); Albumin 3.4 g/dL (3.5-5.0); Alkaline Phosphatase 956 U/L (40-110); Anion Gap 18 mmol/L (10-20); BUN (Urea Nitrogen) 10 mg/dL (9.8-20.1); Bilirubin, Total 0.5 mg/dL (0.2-1.2); Calc. Creatinine Clearance 0 mL/min (70-130); Carbon Dioxide 23 mmol/L (22-29); Chloride 92 mmol/L (98-107); Estimated GFR 40; Globulin 4.2 g/dL (2.4-3.5); Lipase 41 U/L (8-78); Potassium 4.4 mmol/L (3.5-5.1); Protein, Total 7.6 g/dL (6.0-8.3); Sodium 129 mmol/L (136-145)
[2023-05-07 01:15] LABS: Troponin I Less than 0.010 ng/mL (< 0.028)
[2023-05-07 01:23] LABS: Critical Call Chemistry NUR.DM10 @0111; Glucose 671 mg/dL (70-105)
[2023-05-07] MEDS ORDERED: Insulin Regular 300 UNITS/3 ML VIAL ONE (03:05)
[2023-05-07] MEDS ORDERED: Dexamethasone 4 mg/ml Vial ONE (07:12)
== END 2023-05-07 04:00 | disposition home or self-care (01) ==
LOC: ERS 23:54
DX: T58.91XA Toxic effect of carbon monoxide from unspecified source, accidental (unintentional), initial encounter (principal); L25.0 Unspecified contact dermatitis due to cosmetics; E11.65 Type 2 diabetes mellitus with hyperglycemia; R94.5 Abnormal results of liver function studies; I13.0 Hypertensive heart and chronic kidney disease with heart failure and stage 1 through stage 4 chronic kidney disease, or unspecified chronic kidney disease; E11.22 Type 2 diabetes mellitus with diabetic chronic kidney disease; N18.2 Chronic kidney disease, stage 2 (mild); I50.22 Chronic systolic (congestive) heart failure; I25.10 Atherosclerotic heart disease of native coronary artery without angina pectoris; E11.40 Type 2 diabetes mellitus with diabetic neuropathy, unspecified; F17.210 Nicotine dependence, cigarettes, uncomplicated
CPT/HCPCS: 36415; 71045; 80053; 82010; 83690; 83880; 84484; 85025; 93005; 94760; 96374; 96375; J1100; J1200; J1815; J7512; S0028